=== PATIENT | male | born 1975 | race Caucasian/White ===

== ENCOUNTER → 2020-05-29 | Outpatient (CLI) | payer BC ==
--- NOTE | 2020-05-29 15:27 | CT ---
EXAMINATION TYPE: CT abdomen pelvis w con DATE OF EXAM: 05/29/2020 COMPARISON: None HISTORY: Left lower quadrant pain. CT DLP: 1573 mGycm CONTRAST: CT scan of the abdomen and pelvis is performed with Oral Contrast and with IV Contrast, patient injec diann with 100 mL of Isovue M300. FINDINGS: LUNG BASES-: No visible nodule. No infiltrate. LIVER/GB: No calcified gallstones. No space occupying hepatic lesion. Biliary tree is of normal ca liber. PANCREAS: No inflammation. No distinct mass. SPLEEN: No splenic enlargement. No lesion seen. ADRENALS: No nodule. No thickening. KIDNEYS/BLADDER: No hydronephrosis. No nephrolithiasis. No distinct renal mass. Urinary bladder g rossly unremarkable. BOWEL: Normal appendix. Normal bowel caliber. No inflammation. Sigmoid diverticulosis without diver ticulitis. GENITAL ORGANS: No gross abnormality. LYMPH NODES: No greater than 1cm abdominal or pelvic lymph nodes are appreciated. AORTA: No significant abnormality. OSSEOUS STRUCTURES: No significant abnormality is seen. OTHER: No significant additional abnormality is seen. IMPRESSION: 1. Sigmoid diverticulosis without diverticulitis.
== END | disposition home or self-care (01) ==
LOC: RADCTMAIN 12:16
PROVIDERS: ATTEND Family Medicine
DX: K57.30 Diverticulosis of large intestine without perforation or abscess without bleeding (principal)
CPT/HCPCS: 74177; Q9967 ×2

== ENCOUNTER → 2024-04-05 | Outpatient (CLI) | payer BC ==
--- NOTE | 2024-04-05 08:50 | US ---
EXAMINATION TYPE: US abdomen limited DATE OF EXAM: 04/05/2024 COMPARISON: NONE CLINICAL INDICATION: Male, 48 years old with history of R10.11 RIGHT UPPER QUADRANT PAIN; RUQ pain, G ERD TECHNIQUE: Grayscale and color Doppler imaging of the right upper quadrant was performed. FINDINGS: EXAM MEASUREMENTS: Liver Length: 15.6 cm Gallbladder Wall: 0.2 cm CBD: 0.4 cm Right Kidney: 11.9x4.4x62 cm STUDY MANAGER NOTES: Pancreas: Tail obscured by overlying bowel gas Liver: wnl Gallbladder: polyp measuring up to 0.5cm Evidence for sonographic Guardado's sign: No CBD: wnl Right Kidney: inf pole cyst: 1.6x1.8x1.8cm exam limited by bowel and body habitus IMPRESSION: 1. No evidence for acute abdominal process. 2. Gallbladder polyp is measuring up to 5 mm. Consider short-term follow-up in [address]. 3. Right renal simple appearing cyst. [facility], , 04/05/2024 8:47 AM
== END | disposition home or self-care (01) ==
LOC: RADUSWWP 07:15
PROVIDERS: ATTEND Family Medicine
DX: K82.4 Cholesterolosis of gallbladder (principal); R10.11 Right upper quadrant pain
CPT/HCPCS: 76705

== ENCOUNTER → 2024-10-08 | Outpatient (CLI) | payer BC ==
--- NOTE | 2024-10-08 09:38 | US ---
EXAMINATION TYPE: US abdomen complete DATE OF EXAM: 10/08/2024 COMPARISON: US 2023, CT 2020 CLINICAL INDICATION: Male, 49 years old with history of K82.4 CHOLESTEROLOSIS OF GALLBLADDER; Cholest erolosis. TECHNIQUE: Grayscale and color Doppler imaging of the abdomen was performed. FINDINGS: EXAM MEASUREMENTS: Liver Length: 16.3 cm Gallbladder Wall: 0.27 cm CBD: Obscured Spleen: 11.2 cm Right Kidney: 12.0 x 5.3 x 4.8 cm Left Kidney: 11.8 x 5.8 x 5.8 cm MANAGER CLINICAL INFORMATICS NOTES: *Exam is very limited due to great amount of gas on today's scan. Pancreas: Not well seen Liver: coarsened with increased echotexture, no dilated ducts, masses or cysts. Gallbladder: *Limited due to gas. Evidence for sonographic Guardado's sign: No CBD: Obscured Spleen: Appears wnl Right Kidney: *Anechoic area seen inferior: 2.5 x 2.2 x 2.2 cm. Left Kidney: wnl, No hydronephrosis, calculi or masses seen Upper IVC: wnl Abd Aorta: Slightly limited. No abnormalities seen. IMPRESSION: 1. No evidence for acute abdominal process. 2. Hepatic steatosis. 3. Right simple appearing renal cyst. No follow-up recommended. [facility], , 10/08/2024 9:35 AM
== END | disposition home or self-care (01) ==
LOC: RADUSWWP 07:50
PROVIDERS: ATTEND Family Medicine
DX: K76.0 Fatty (change of) liver, not elsewhere classified (principal); K82.4 Cholesterolosis of gallbladder; N28.1 Cyst of kidney, acquired
CPT/HCPCS: 76700